=== PATIENT | male | born 2000 | race Two or more races ===

== ENCOUNTER 2023-04-25 17:53 | Emergency (ER) | payer OTHER ==
[~2023-04-25] VITALS: Ht 170.2 cm; Wt 54.5 kg
[2023-04-25] MEDS ORDERED: ACETAMINOPHEN 325 MG TABLET PO ONE (20:30)
[2023-04-25] MEDS ORDERED: IBUPROFEN 600 MG TABLET PO ONE (20:30)
[2023-04-25 22:23] VITALS: BP 128/74; PULSE 90; RESP 18; TEMP 98.6
== END 2023-04-25 22:25 | disposition home or self-care (01) ==
LOC: EMS 17:56
DX: S93.401A Sprain of unspecified ligament of right ankle, initial encounter (principal); Z98.890 Other specified postprocedural states; X50.1XXA Overexertion from prolonged static or awkward postures, initial encounter; Y93.89 Activity, other specified; Y92.89 Other specified places as the place of occurrence of the external cause; Y99.8 Other external cause status
CPT/HCPCS: 99284; 73610-TC; 73630-TC; Z7502; Z7610